=== PATIENT | female | born 1985 | race Caucasian/White ===

== ENCOUNTER 2020-02-27 16:06 | Emergency (ER) | payer OTHER ==
--- NOTE | 2020-02-27 17:32 | RAD REPORT ---
EXAM DESCRIPTION: CT - Head Brain Wo Cont - 02/27/2020 5:16 pm CLINICAL HISTORY: numbness COMPARISON: None. TECHNIQUE: Computed axial tomography of the head was obtained. IV contrast was not requested. All CT scans are performed using dose optimization technique as appropriate and may include automated exposure control or mA/KV adjustment according to patient size. FINDINGS: An intracranial bleed is not seen . The ventricles are normal in caliber. No extra-axial fluid collection is noted. Fluid within the sinuses/ mastoids is not seen. IMPRESSION: No acute intracranial abnormality is seen. If patient's symptoms persist MRI of the bra in would be recommended.
--- NOTE | 2020-02-28 00:43 | EDPHYS ---
Physician Documentation [facility] Name: Clarisa Bedolla Age: 34 yrs Sex: Female : 1985 Arrival Date: 02/27/2020 Time: 16:12 Bed 26 Private MD: ED Physician Gucci Cook HPI: 02/26 18:13 This 34 yrs old Female presents to ER via Ambulatory with complaints of rn Headache, Numbness Of Face, Dizziness. 18:13 The patient complains of pain to the top of head and forehead. The patient describes rn the headache as aching. Onset: The symptoms/episode began/occurred 3 month(s) ago. Severity of symptoms: At its worst the pain was moderate, in the emergency department the pain has improved. The symptoms are alleviated by nothing. the symptoms are aggravated by lights, movement, noise, stress. The patient has experienced similar episodes in the past. Reports atleast 3 months of migraines with aura, intermittent tingling of left cheek/nose/upper lip. No facial or head trauma. No fever. Also reports lightheaded when bends over, as well as intermittent headaches. Treated for migraines but never had formal w/u with imaging and such. . 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 - Social history:: Smoking status: Patient denies any tobacco usage or history of. - Family history:: not pertinent. - Hospitalizations: : No recent hospitalization is reported. ROS: 18:13 Constitutional: Negative for fever, chills, and weight loss, Eyes: Negative for injury, rn pain, redness, and discharge, Neck: Negative for injury, pain, and swelling, Cardiovascular: Negative for chest pain, palpitations, and edema, Respiratory: Negative for shortness of breath, cough, wheezing, and pleuritic chest pain, Abdomen/GI: Negative for abdominal pain, nausea, vomiting, diarrhea, and constipation, MS/Extremity: Negative for injury and deformity, Skin: Negative for injury, rash, and discoloration, Neuro: Negative for weakness and seizure Exam: 18:13 Constitutional: This is a well developed, well nourished patient who is awake, alert, rn and in no acute distress. Ambulatory to room without assistance or difficulty. Head/Face: Normocephalic, atraumatic. Eyes: Pupils equal round and reactive to light, extra-ocular motions intact. Lids and lashes normal. Conjunctiva and sclera are non-icteric and not injected. Cornea within normal limits. Periorbital areas with no swelling, redness, or edema. Neck: Trachea midline, no thyromegaly or masses palpated, and no cervical lymphadenopathy. Supple, full range of motion without nuchal rigidity, or vertebral point tenderness. No Meningismus. Cardiovascular: Regular rate and rhythm. No pulse deficits. Respiratory: Speaking full sentences, unlabored. Skin: Warm, dry MS/ Extremity: Pulses equal, no cyanosis. Neurovascular intact. Full, normal range of motion. Equal circumference. Neuro: Awake and alert, GCS 15, oriented to person, place, time, and situation. Cranial nerves II-XII grossly intact. Motor strength 5/5 in all extremities. Sensory grossly intact. Cerebellar exam normal. Normal gait. Vital Signs: 16:28 BP 127 / 81; Pulse 82; Resp 16 S; Temp 97.4(TE); Pulse Ox 100% on R/A; Weight 58.97 kg ca1 (R); Height 5 ft. 2 in. (157.48 cm) (R); 16:28 Body Mass Index 23.78 (58.97 kg, 157.48 cm) ca1 Selena Coma Score: 18:20 Eye Response: spontaneous(4). Verbal Response: oriented(5). Motor Response: obeys rn commands(6). Total: 15. MDM: 16:50 Patient medically screened. rn 18:20 Differential diagnosis: cluster headache, migraine, neoplasm, sinusitis, tension rn headache, trigeminal neuralgia, vasomotor headache. Data reviewed: vital signs, nurses notes, radiologic studies, CT scan, and as a result, I will discharge patient. Counseling: I had a detailed discussion with the patient and/or guardian regarding: the historical points, exam findings, and any diagnostic results supporting the discharge/admit diagnosis, radiology results, the need for outpatient follow up, to return to the emergency department if symptoms worsen or persist or if there are any questions or concerns that arise at home. Special discussion: I discussed with the patient/guardian in detail that at this point there is no indication for admission to the hospital. It is understood, however, that if the symptoms persist or worsen the patient needs to return immediately for re-evaluation. Based on the history and exam findings, there is no indication for further emergent testing or inpatient evaluation. I discussed with the patient/guardian the need to see the neurologist for further evaluation of the symptoms. ED course: No acute findings on CT brain, normal vitals, normal exam, could be complicated migraines or neuropathy. Will dc home with neuro f/u. . 02/26 17:05 Order name: CT Head Brain wo Cont rn Administered Medications: No medications were administered Disposition: 02/27/20 18:22 Discharged to Home. Impression: Headache, Paresthesia of skin. - Condition is Stable. - Discharge Instructions: Migraine Headache, Paresthesia. - Medication Reconciliation Form, Thank You Letter, Antibiotic Education, Prescription Opioid Use form. - Follow up: Jose Brooks MD; When: As needed; Reason: Recheck today's complaints, Re-evaluation by your physician. - Problem is an ongoing problem. - Symptoms have improved. Signatures: Dispatcher [employer] EDMS Laurie Todd RN RN Gucci Guadarrama MD MD rn Acob, Cheryl, RN RN ca1 Corrections: (The following items were deleted from the chart) 18:56 18:22 02/27/2020 18:22 Discharged to Home. Impression: Headache; Paresthesia of skin. sv Condition is Stable. Forms are Medication Reconciliation Form, Thank You Letter, Antibiotic Education, Prescription Opioid Use. Follow up: Jose Brooks; When: As needed; Reason: Recheck today's complaints, Re-evaluation by your physician. Problem is an ongoing problem. Symptoms have improved. rn
--- NOTE | 2020-02-28 00:43 | ER ---
Nurse's Notes [facility] Name: Clarisa Bedolla Age: 34 yrs Sex: Female : 1985 Arrival Date: 02/27/2020 Time: 16:12 Bed 26 Private MD: Diagnosis: Headache;Paresthesia of skin Presentation: 02/26 16:28 Chief complaint: Patient states: I have been having neurological symptoms. When I am ca1 squatting and I get up, I get really dizzy, when I bend down and get up I get dizzy and almost black out. My vision on my R eye changes, it can get blurry for a couple days then it will get better. This all started within the last 3 months. And for about a year now, I feel this tingling sensation on my face, around my nose like there's a spider web on my face, this comes and goes but has been happening a lot last night that's why am here. Coronavirus screen: Proceed with normal triage. Patient denies a cough. Patient denies shortness of breath or difficulty breathing. Patient denies measured and/or subjective temperature greater than 100.4F prior to today's visit. Patient denies travel on a cruise ship or to a country the [facility] currently lists as an affected area. Patient denies contact with known and/or suspected case of COVID-19. Ebola Screen: Patient negative for fever greater than or equal to 101.5 degrees Fahrenheit, and additional compatible Ebola Virus Disease symptoms Patient denies exposure to infectious person. Patient denies travel to an Ebola-affected area in the 21 days before illness onset. No symptoms or risks identified at this time. Initial Sepsis Screen: Does the patient meet any 2 criteria? No. Patient's initial sepsis screen is negative. Does the patient have a suspected source of infection? No. Patient's initial sepsis screen is negative. Risk Assessment: Do you want to hurt yourself or someone else? Patient reports no desire to harm self or others. Onset of symptoms was February 27, 2020. 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 - Social history:: Smoking status: Patient denies any tobacco usage or history of. - Family history:: not pertinent. - Hospitalizations: : No recent hospitalization is reported. Screenin:57 Abuse screen: Denies threats or abuse. Denies injuries from another. Nutritional sv screening: No deficits noted. Tuberculosis screening: No symptoms or risk factors identified. Fall Risk None identified. Assessment: 17:05 General: Appears in no apparent distress. comfortable, well developed, Behavior is sv calm, cooperative, appropriate for age. Pain: Denies pain. Neuro: Level of Consciousness is awake, alert, obeys commands, Oriented to person, place, time, situation, Moves all extremities. Full function Gait is steady, Speech is normal, Reports numbness in nose. Respiratory: Respiratory effort is even, unlabored, Respiratory pattern is regular, symmetrical. Derm: Skin is intact, Skin is pink, warm \T\ dry. Musculoskeletal: Range of motion: intact in all extremities. 18:56 Reassessment: Patient appears in no apparent distress at this time. No changes from sv previously documented assessment. Patient and/or family updated on plan of care and expected duration. Pain level reassessed. Patient is alert, oriented x 3, equal unlabored respirations, skin warm/dry/pink. Vital Signs: 16:28 BP 127 / 81; Pulse 82; Resp 16 S; Temp 97.4(TE); Pulse Ox 100% on R/A; Weight 58.97 kg ca1 (R); Height 5 ft. 2 in. (157.48 cm) (R); 16:28 Body Mass Index 23.78 (58.97 kg, 157.48 cm) ca1 Selena Coma Score: 18:20 Eye Response: spontaneous(4). Verbal Response: oriented(5). Motor Response: obeys rn commands(6). Total: 15. ED Course: 16:12 Patient arrived in ED. mr 16:35 Triage completed. ca1 16:35 Arm band placed on right wrist. ca1 16:49 Laurie Todd RN is Primary Nurse. sv 16:50 Gucci Cook MD is Attending Physician. rn 16:55 ED physician to see patient. sv 16:57 Patient has correct armband on for positive identification. Bed in low position. Call sv light in reach. Door closed. Head of bed elevated. 17:15 CT Head Brain wo Cont In Process Unspecified. EDMS 17:26 Awaiting radiology results. sv 18:22 Jose Brooks MD is Referral Physician. rn 18:56 No provider procedures requiring assistance completed. Patient did not have IV access sv during this emergency room visit. Administered Medications: No medications were administered Outcome: 18:22 Discharge ordered by . rn 18:56 Discharged to home ambulatory. sv 18:56 Condition: stable 18:56 Discharge instructions given to patient, Instructed on discharge instructions, follow up and referral plans. Demonstrated understanding of instructions, follow-up care. 18:56 Patient left the ED. sv Signatures: Dispatcher [employer] EDMS Laurie Todd, RN RN sv Elise Justice Roman, MD MD rn Acob, Kathy RN RN ca1
== END 2020-02-27 18:56 | disposition home or self-care (01) ==
LOC: ER 16:06
DX: R51 Headache (principal); R20.2 Paresthesia of skin
CPT/HCPCS: 70450; 99283